=== PATIENT | male | born 1965 | race Caucasian/White ===

== ENCOUNTER → 2019-11-29 | Outpatient (CLI) | payer OTHER ==
[~2019-11-29] MED LIST: ASPIR-TRIN325 MG PO; CIPRO500 MG PO; IBUPROFEN 200200 M1 PO; NORCO 5-325 TA1 EACH PO; OXYCODONE HCL 55 MG PO; PERCOCET PO; PRINIVIL10 MG PO
== END ==
LOC: M.MRI 11-19 17:30
DX: S46.212A Strain of muscle, fascia and tendon of other parts of biceps, left arm, initial encounter (principal); X58.XXXA Exposure to other specified factors, initial encounter; Y93.89 Activity, other specified; Y92.89 Other specified places as the place of occurrence of the external cause; Y99.8 Other external cause status